=== PATIENT | male | born 2005 | race Caucasian/White ===

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

== ENCOUNTER 2025-06-01 13:57 | Emergency (ER) | payer OTHER ==
[~2025-06-01] VITALS: Ht 167.6 cm; Wt 85.3 kg
[2025-06-01 14:12] VITALS: BP 146/109
== END 2025-06-01 16:14 | disposition home or self-care (01) ==
LOC: ER 13:57
DX: S06.0X0A Concussion without loss of consciousness, initial encounter (principal); Z88.1 Allergy status to other antibiotic agents; Z79.899 Other long term (current) drug therapy; V89.2XXA Person injured in unspecified motor-vehicle accident, traffic, initial encounter
CPT/HCPCS: 70450; 99283-25